=== PATIENT | male | born 1950 | race Caucasian/White ===

== ENCOUNTER → 2017-05-07 | Outpatient (CLI) | payer MEDICARE, OTHER ==
[2017-05-07 13:43] LABS: BLOOD UREA NITROGEN 12 mg/dL (6-24); CREATININE 0.8 mg/dL (0.6-1.3)
== END | disposition disaster alternative care site (69) ==
LOC: GLAB 12:52 → GRAD 15:00
PROVIDERS: Thoracic Surgery (Cardiothoracic Vascular Surgery)
DX: J98.59 Other diseases of mediastinum, not elsewhere classified (principal); I70.8 Atherosclerosis of other arteries; R91.1 Solitary pulmonary nodule; R93.7 Abnormal findings on diagnostic imaging of other parts of musculoskeletal system
CPT/HCPCS: A9577